=== PATIENT | female | born 1975 | race Hispanic/Latino ===

== ENCOUNTER 2018-10-07 11:19 | Emergency (ER) | payer BC ==
[2018-10-07] MEDS ORDERED: IPRATROPIUM/ALBUTEROL SULFATE 3 ML SOLUTION IH ONE (11:40)
[2018-10-07] MEDS ORDERED: KETOROLAC TROMETHAMINE 60 MG/2 ML VIAL ONE (11:54)
[2018-10-07] MEDS ORDERED: DEXAMETHASONE SOD PHOSPHATE 10MG/ML 1ML VIAL ONE (11:54)
== END 2018-10-07 12:25 | disposition home or self-care (01) ==
LOC: EDH 11:19
DX: J20.9 Acute bronchitis, unspecified (principal); R03.0 Elevated blood-pressure reading, without diagnosis of hypertension; Z72.0 Tobacco use; Z98.51 Tubal ligation status
CPT/HCPCS: 94640; 96372 ×2; 99284; J1100; J1885